=== PATIENT | female | born 1990 | race Caucasian/White ===

== ENCOUNTER 2020-03-01 11:00 | Emergency (ER) | payer OTHER ==
[~2020-03-01] VITALS: Ht 162.6 cm; Wt 133.8 kg
[2020-03-01] MEDS ORDERED: ONDANSETRON HCL INJ 2MG/ML 2ML 2 MG/ML VIAL IV ONE (11:33)
--- NOTE | 2020-03-01 11:33 | Emergency Department Note ---
History of Present Illnes History of Present Illness Chief Complaint: c/o low back pain for 3 days n/v today History of Present Illness This is a 29 year old female . Arrival Mode: Car Tugboat Dispatcher Required: No Onset (how long ago): day(s) (3) Location: left flank low back Radiation: Reports non-radiation Severity: moderate Onset quality: gradual Duration (how long): day(s) (3) Timing of current episode: constant Progression: worsening Relieving factors: none Exacerbating factors: none Treatments prior to arrival: other (cranberry ) Risk factors: none Past Medical/Family History Physician Review I have reviewed the patient's past medical and family history. Any updates have been documented here. Past Medical History Recent Fever: No Clinical Suspicion of Infectio: No New/Unexplained Change in Ment: No Past Medical History: None, Anxiety Other Medical History: pt denies any HTN. States that her BP often high in the Dr Office Past Surgical History: Cholecysctectomy Social History Smoking Cessation: Never Smoker Counseling Performed: No Alcohol Use: Social Any Illegal Drug Use: No TB Exposure/Symptoms: No Physically hurt or threatened: No Family History Family history of heart diseas: No Other Any Pre-Existing Lines (PICC,: No Is patient up to date on immun: No Review of Systems Review of Systems Constitutional: Reports other (anxiety) EENTM: Reports no symptoms Cardiovascular: Reports no symptoms Respiratory: Reports no symptoms Gastrointestinal: Reports no symptoms Genitourinary: Denies discharge, Denies dysuria, Denies frequency, Denies hematuria Musculoskeletal: Reports as per HPI Integumentary: Reports no symptoms Neurological: Reports no symptoms Psychological: Reports no symptoms Endocrine: Reports no symptoms Hematological/Lymphatic: Reports no symptoms Review of other systems: All other systems negative Physical Exam Related Data Allergies: Coded Allergies: No Known Allergies (Unverified , 03/01/20) Vital signs reviewed: Yes Physical Exam CONSTITUTIONAL Constitutional: Present well-developed, Present morbidly obese HENT HENT: Present normocephalic EYES Eyes: Reports PERRL, Reports conjunctivae normal, Reports EOM normal, Reports lids normal NECK Neck: Present ROM normal, Present supple PULMONARY Pulmonary: Present effort normal, Present breath sounds normal CARDIOVASCULAR Cardiovascular: Present heart sounds normal, Present intact distal pulses, Pr esent capillary refill normal, Present tachycardia GASTROINTESTINAL Abdominal: Present soft, Present nontender, Present bowel sounds normal, Present left CVA tenderness GENITOURINARY Genitourinary: Present exam deferred SKIN Skin: Present warm, Present dry MUSCULOSKELETAL Musculoskeletal: Present ROM normal NEUROLOGICAL Neurological: Present alert, Present oriented x 3, Present DTRs normal, Present no gross motor or sensory deficits PSYCHOLOGICAL Psychological: Present mood/affect normal, Present behavior normal, Present thought content normal, Present judgement normal Results Laboratory Laboratory ua small leuk prot 100 mg/dl blood neg trace ketones and small bili. Preg negative. cbc sig for WBC 11.6 h/h 15.4/47.3 Lab results reviewed: Yes Laboratory comments k 3.3 mildly decreased cardiac markers wnl lactic acid wnl Diagnostics Tests Diagnostic test(s) reviewed: Yes Diagnostic comments sinus tach at 115/min ow wnl Assessment & Plan Medical Decision Making MDM small leuk esterase cw UTI with hx and Physical exam. Pt told to return if conditions do not improve or worsen or for any further concerns Reassessment Reassessment time: 12:17 (heart rate and BP re decreasing still c/o pain will give toradol 30 mg iv and continue to monitor BP/HR) Assessment & Plan Final Impression: (1) Kidney infection (2) Hypertension Depart Disposition: HOME, SELF-alf Meds Active Scripts Ondansetron Hcl* (ZOFRAN*) 4 Mg Tablet, 4 MG SL Q6H PRN for NAUSEA, #14 MG 0 R efills Prov:NARINDER ANTONIO MD 03/01/20 Levofloxacin (LEVAQUIN) 500 Mg Tablet, 500 MG PO DAILY for 10 Days, #10 TAB 0 Refills Prov:NARINDER ANTONIO MD 03/01/20 Lisinopril (LISINOPRIL) 5 Mg Tablet, 5 MG PO DAILY for hypertension for 30 Days, #30 TAB 0 Refills Prov:NARINDER ANTONIO MD 03/01/20 NARINDER ANTONIO MD Mar 01, 2020 11:33
[2020-03-01] MEDS ORDERED: ACETAMINOPHEN 325 MG TAB PO ONE (11:43)
[2020-03-01] MEDS ORDERED: SODIUM CHLORIDE 0.9% 1000 ML BAG IV ONE (11:45)
[2020-03-01] MEDS ORDERED: ONDANSETRON HCL INJ 2MG/ML 2ML 2 MG/ML VIAL ONE (11:53)
[2020-03-01] MEDS ORDERED: SODIUM CHLORIDE 0.9% 1000ML 1,000 ML ONE (11:54)
--- OUTSIDE RECORDS SUMMARY | 2020-03-01 11:54 | XMS REPORT | Clinical Summary ---
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 Active Problems No known active problems Encounters Care Team Description Date Type Specialty Richard Rhodes MD Anxiety attack (Primary Dx) 11/01/2019 Telemedicine Sports Medicine 10/31/2019 Travel 10/29/2019 Travel after 03/01/2019 Family History Relation Name Status Comments Father Mother Social History Date Tobacco Use Types Packs/Day Years Used Never Smoker Smokeless Tobacco: Never Used Drinks/Week oz/Week Comments Alcohol Use Yes Sex Assigned at Date Recorded Female 10/29/2019 10:45 AM CDT Industry Job Start Date Occupation Not on file Not on file Not on file Travel End Travel History Travel Start No recent travel history available. Last Filed Vital Signs Reading Time Taken Comments Vital Sign - - Blood Pressure - - Pulse - - Temperature - - Respiratory Rate - - Oxygen Saturation - - Inhaled Oxygen Concentration 127 kg (280 lb) 11/01/2019 9:36 AM CDT Weight 162.6 cm (5' 4") 11/01/2019 9:36 AM CDT Height 48.06 11/01/2019 9:36 AM CDT Body Mass Index Plan of Treatment Health Maintenance Due Date Last Done Comments CERVICAL CANCER SCREENING 2010 INFLUENZA VACCINE 02/23/2020 Results Not on fileafter 03/01/2019 Insurance Type Payer Benefit Subscriber ID Effective Phone Address Plan / Dates Group HMO AETNA AETNA xxxxxxxxxx [id number] HMO,POS,EP resent O, MC/EC [id number] Advance Directives For more information, please contact: [phone] 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
--- OUTSIDE RECORDS SUMMARY | 2020-03-01 11:54 | XMS REPORT | Continuity of Care Document ---
Author Author [facility] t Organization [facility] Address [address] [place] [address] Phone Unavailable Care Team Providers Care Application Support Administrator Name Role Phone Carmelo DEAN, Michael Ramos PCP Carmelo DEAN, Michael Ramos Attphys Payers Payer Name Policy Type Policy Number Effective Date Expiration Date S ource AETNAAETNA HMO,POS,EPO, MC/[id number] xxxxxxxxxx 2017 00:00:00 Arnaldo Fontaine Problems This patient has no known problems. Allergies, Adverse Reactions, Alerts This patient has no known allergies or adverse reactions. Social History Social Habit Start Date Stop Date Quantity Comments Source Sex Assigned At [facility] Alcohol intake 2019-11-01 00:00:00 2019-11-01 00:00:00 Current drinker of alcohol (finding) Arnaldo Fontaine Smoking Status Start Date Stop Date Source Never smoker Arnaldo cadena Medications Ordered Medication Name Filled Medication Name Start Date Stop Da te Current Medication? Ordering Clinician Indication Dosage Frequency Signature (SIG) Comments Components Source ALPRAZolam (Xanax) 1 MG tablet 2019-11-01 00:00:00 2019-10-24 9 23:59:00 No Anxiety attack 1mg [id number] Take 1 tablet (1 mg total) by mouth 3 (three) times a day as needed for anxiety for up to 10 days. Arnaldo Fontaine Vital Signs Vital Name Observation Time Observation Value Comments Source Body height 2019-11-01 09:36:00 162.6 cm Arnaldo Fontaine Body weight 2019-11-01 09:36:00 127.007 kg Arnaldo Fontaine BMI 2019-11-01 09:36:00 48.06 kg/m2 Arnaldo Fontaine Procedures This patient has no known procedures. Plan of Care Planned Activity Planned Date Details Comments Source Future Scheduled Test 2020-02-23 00:00:00 INFLUENZA VACCINE [code = INFLUENZA VACCINE] Arnaldo Fontaine Future Scheduled Test 2010 00:00:00 Screening for ricky gnant neoplasm of cervix (procedure) [code = 950733326] Arnaldo Berkowitz t Encounters Start Date/Time End Date/Time Encounter Type Admission Type [facility] Care Department Encounter ID Source 2019-11-01 00:00:00 2019-11-01 00:00:00 Outpatient [facility]IL[facility]IO [facility] [id number] Arnaldo Fontaine Results This patient has no known results.
[2020-03-01] MEDS ORDERED: KETOROLAC TROMETHAMINE 30 MG/ML VIAL IV ONE (12:13)
[2020-03-01] MEDS ORDERED: LEVOFLOXACIN 750MG/D5W 150ML 150 ML IV ONE (12:18)
--- NOTE | 2020-03-01 12:35 | NUR ---
urine and blood cx sent across the street to the lab
[2020-03-01] MEDS ORDERED: CLONIDINE HCL 0.1 MG TAB PO ONE (13:27)
[2020-03-01] MEDS ORDERED: LISINOPRIL5 MG PO (13:55)
[2020-03-01] MEDS ORDERED: ZOFRAN4 MG SL (13:55)
[2020-03-01] MEDS ORDERED: LEVAQUIN500 MG PO (13:55)
[2020-03-01 14:13] VITALS: BP 167/98
== END 2020-03-01 14:25 | disposition home or self-care (01) ==
LOC: FSED 11:13
DX: M54.5 Low back pain (principal); R11.2 Nausea with vomiting, unspecified; N15.9 Renal tubulo-interstitial disease, unspecified; I10 Essential (primary) hypertension
CPT/HCPCS: 80048; 80076; 81003; 81025; 82553; 84484; 85025; 87040; 87086; 93005; 96374; 96375; 99284; J1885; J2405; J7030